=== PATIENT | male | born 1985 | race Caucasian/White ===

== ENCOUNTER 2017-04-09 10:25 | Emergency (ER) | payer OTHER ==
[2017-04-09 10:33] VITALS: BP 154/89
[2017-04-09] MEDS ORDERED: KETOROLAC TROMETHAMINE INJ/PF 30 MG/1 ML SDV IM ONE (11:19)
--- NOTE | 2017-04-09 11:33 | ER Document Report ---
ED Neck/Back Problem - General Chief Complaint: Back Pain Stated Complaint: NECK AND BACK PAIN Time Seen by Provider: 04/09/17 11:05 TRAVEL OUTSIDE OF THE [place] IN LAST 30 DAYS: No - HPI Patient complains to provider of: Neck - sore, and tight. 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 Associated symptoms: None - Related Data Allergies/Adverse Reactions: No Known Allergies Allergy (Verified 04/09/17 10:32) Past Medical History - Social History Smoking Status: Never Smoker Chew tobacco use (# tins/day): No Frequency of alcohol use: Rare Drug Abuse: None Family History: Reviewed & Not Pertinent Patient has suicidal ideation: No Patient has homicidal ideation: No - Past Medical History Cardiac Medical History: Denies: Hx Coronary Artery Disease, Hx Heart Attack, Hx Hypertension Pulmonary Medical History: Denies: Hx Asthma, Hx Bronchitis, Hx COPD, Hx Pneumonia Neurological Medical History: Denies: Hx Cerebrovascular Accident, Hx Seizures Renal/ Medical History: Denies: Hx Peritoneal Dialysis Musculoskeltal Medical History: Denies Hx Arthritis - Immunizations Hx Diphtheria, Pertussis, Tetanus Vaccination: No Review of Systems - Review of Systems Constitutional: No symptoms reported EENT: No symptoms reported Cardiovascular: No symptoms reported Respiratory: No symptoms reported Gastrointestinal: No symptoms reported Musculoskeletal: See HPI Neurological/Psychological: No symptoms reported -: Yes All other systems reviewed and negative Physical Exam - Vital signs Vitals: Temp Pulse Resp BP Pulse Ox 98.0 F 90 16 154/89 H 97 04/09/17 10:32 04/09/17 10:32 04/09/17 10:32 04/09/17 10:32 04/09/17 10:32 - General General appearance: Appears well, Alert In distress: None - Cardiovascular Pulses: Normal: Radial Normal capillary refill: Yes - Back Back: Normal, Nontender, Other - paraspinal muscle tenderness along left trapezius with associated muscle tightness. No: Deformity/step-off, Vertebra tenderness, Wounds - Extremities General upper extremity: Normal inspection, Nontender, Normal color, Normal ROM , Normal strength, Normal temperature General lower extremity: Normal inspection, Nontender, Normal color, Normal ROM , Normal strength, Normal temperature, Normal weight bearing - Neurological Neuro grossly intact: Yes Cognition: Normal Orientation: AAOx4 [place] Coma Scale Eye Opening: Spontaneous [place] Coma Scale Verbal: Oriented Melanie Coma Scale Motor: Obeys Commands [place] Coma Scale Total: 15 Motor strength normal: LUE, RUE, LLE, RLE 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 Presentation is consistent with a muscle strain. Will discharge patient home with steroid and muscle relaxer and can continue taking his pain management medications as prescribed. Patient to follow-up with primary care. Patient does not have any focal neurologic deficits, nuchal rigidity, vital signs are within normal limits no papilledema. Patient is otherwise no acute distress and hemodynamically stable. Low index for suspicion of acute subarachnoid hemorrhage, meningitis or mass. Low suspicion for acute life- threatening etiology with intact neuro exam therefore no additional imaging or laboratory testing is indicated. - Vital Signs Vital signs: Temp Pulse Resp BP Pulse Ox 98.0 F 90 16 154/89 H 97 04/09/17 10:32 04/09/17 10:32 04/09/17 10:32 04/09/17 10:32 04/09/17 10:32 Discharge - Discharge Clinical Impression: Neck pain Condition: Good Disposition: HOME, SELF-CARE Instructions: Ice Packs ([facility]), Muscle Strain ([facility]), Pain Medication Injection ( [facility]), Warm Packs ([facility]) Prescriptions: Cyclobenzaprine HCl [Flexeril 10 mg Tablet] 10 mg PO TIDP PRN #15 tab PRN Reason: Methylprednisolone [Medrol Dosepack (4 mg/Tab) 21 Tab/Dosepak] 4 mg PO ASDIR PRN #21 tab.ds.pk PRN Reason: Forms: Elevated Blood Pressure
== END 2017-04-09 12:03 | disposition home or self-care (01) ==
LOC: ER 10:25
DX: M54.2 Cervicalgia (principal); M54.9 Dorsalgia, unspecified
CPT/HCPCS: 99283; J1885

== ENCOUNTER 2018-04-18 15:45 | Emergency (ER) | payer OTHER ==
[2018-04-18 15:53] VITALS: BP 138/85
[2018-04-18] MEDS ORDERED: DIPH/PERTUSS(ACELL)/TETANUS VAC/PF 0.5 ML SYR (>=10YO) IM ONE (16:33)
--- NOTE | 2018-04-18 16:39 | ER Document Report ---
ED Hand/Wrist Injury - General Chief Complaint: Hand Injury Stated Complaint: LEFT HAND INJURY Time Seen by Provider: 04/18/18 16:29 Notes: pt is a 32 yo healthy male, presenting to ED c/o injury and pain to left hand, index and middle fingers. 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 pt unsure of tetnus status. pt is a patient of pain management, declines pain med at this time TRAVEL OUTSIDE OF THE [place] IN LAST 30 DAYS: No - HPI Onset: Just prior to arrival - Related Data Allergies/Adverse Reactions: No Known Allergies Allergy (Verified 04/18/18 15:46) Past Medical History - General Information source: Patient - Social History Smoking Status: Never Smoker Chew tobacco use (# tins/day): No Frequency of alcohol use: Occasional Drug Abuse: None Family History: Reviewed & Not Pertinent Patient has suicidal ideation: No Patient has homicidal ideation: No - Past Medical History Cardiac Medical History: Denies: Hx Coronary Artery Disease, Hx Heart Attack, Hx Hypertension Pulmonary Medical History: Denies: Hx Asthma, Hx Bronchitis, Hx COPD, Hx Pneumonia Neurological Medical History: Denies: Hx Cerebrovascular Accident, Hx Seizures Renal/ Medical History: Denies: Hx Peritoneal Dialysis Musculoskeletal Medical History: Denies Hx Arthritis Past Surgical History: Reports: Hx Orthopedic Surgery - hip and face. - Immunizations Hx Diphtheria, Pertussis, Tetanus Vaccination: No Review of Systems - Review of Systems Constitutional: No symptoms reported EENT: No symptoms reported Cardiovascular: No symptoms reported Respiratory: No symptoms reported Gastrointestinal: No symptoms reported Genitourinary: No symptoms reported Male Genitourinary: No symptoms reported Musculoskeletal: See HPI Skin: No symptoms reported Hematologic/Lymphatic: No symptoms reported Neurological/Psychological: No symptoms reported Physical Exam - Vital signs Vitals: Temp Pulse Resp BP Pulse Ox 98.2 F 74 12 138/85 H 93 04/18/18 15:51 04/18/18 15:51 04/18/18 15:51 04/18/18 15:51 04/18/18 15:51 Interpretation: Normal - General General appearance: Appears well, Alert - HEENT Head: Normocephalic, Atraumatic Eyes: Normal Pupils: PERRL - Respiratory Respiratory status: No respiratory distress Chest status: Nontender Breath sounds: Normal Chest palpation: Normal - Cardiovascular Rhythm: Regular Heart sounds: Normal auscultation Murmur: No - Abdominal Inspection: Normal Distension: No distension Bowel sounds: Normal Tenderness: Nontender Organomegaly: No organomegaly - Back Back: Normal, Nontender - Extremities General lower extremity: Normal inspection, Nontender, Normal color, Normal ROM , Normal temperature, Normal weight bearing. No: Zen's sign Hand: Tender - + 1cm superficial lacertion to dorsal left index finger between PIP and DIP. no active bleeding. no tendon involvement. small subungal hematoma left index finger. + tenderness left middle finger over PIP. no deformity. distal SMC intact - Neurological Neuro grossly intact: Yes Cognition: Normal Orientation: AAOx4 [place] Coma Scale Eye Opening: Spontaneous [place] Coma Scale Verbal: Oriented [place] Coma Scale Motor: Obeys Commands [place] Coma Scale Total: 15 Speech: Normal Motor strength normal: LUE, RUE, LLE, RLE Sensory: Normal - Psychological Associated symptoms: Normal affect, Normal mood - Skin Skin Temperature: Warm Skin Moisture: Dry Skin Color: Normal Course - Re-evaluation Re-evalutation: 04/18/18 17:28 X-rays negative for fracture. This result was reviewed with patient. Wounds were cleaned with Shur-Clens, edges approximated and derma serrano applied. Home care, primary care follow-up and ED return precautions were discussed with patient. Patient is agreeable with plan and stable for discharge - Vital Signs Vital signs: Temp Pulse Resp BP Pulse Ox 98.2 F 74 12 138/85 H 93 04/18/18 15:51 04/18/18 15:51 04/18/18 15:51 04/18/18 15:51 04/18/18 15:51 Procedures - Laceration/Wound Repair left index finger Wound length (cm): 1 Wound's Depth, Shape: Superficial Wound explored: Clean Wound Repaired With: Dermabond Post-procedure NV exam normal: Yes Complications: Yes Discharge - Discharge Clinical Impression: Crush injury Finger laceration Qualifiers: Encounter type: initial encounter Finger: index finger Damage to nail status: without damage Foreign body presence: without foreign body Laterality: left Qualified Code(s): S61.211A - Laceration without foreign body of left index finger without damage to nail, initial encounter Condition: Stable Disposition: HOME, SELF-CARE Instructions: Tetanus Immunization Given ([facility]), Soap Cleansing ([facility]), Skin Adhesive Closure ([facility]), Temporary Splint ([facility]), Ice & Elevation ([facility]) Additional Instructions: Your x-rays were negative for fracture Wear splint for comfort and protection Ice and elevate injured hand is much as possible Ibuprofen for pain and swelling Take your pain medication as prescribed by pain management Follow-up with your primary care pain persists more than 10 days
--- NOTE | 2018-04-18 17:01 | RADIOLOGY REPORT (SQ) ---
EXAM DESCRIPTION: HAND LEFT 3 VIEWS COMPLETED DATE/TIME: 04/18/2018 4:49 pm REASON FOR STUDY: hand pain, crush injury COMPARISON: None. EXAM PARAMETERS: NUMBER OF VIEWS: Three views. TECHNIQUE: AP, lateral and oblique radiographic images acquired of the left hand. LIMITATIONS: None. FINDINGS: MINERALIZATION: Normal. BONES: No acute fracture or dislocation. No worrisome bone lesions. JOINTS: No effusions. SOFT TISSUES: No soft tissue swelling. No foreign body. OTHER: No other significant finding. IMPRESSION: NEGATIVE STUDY OF THE LEFT HAND. NO RADIOGRAPHIC EVIDENCE OF ACUTE INJURY. TECHNICAL DOCUMENTATION: JOB ID: [id number] [employer]- All Rights Reserved Reading location - IP/workstation name: [email or web address]
== END 2018-04-18 17:39 | disposition home or self-care (01) ==
LOC: ER 15:45
DX: S67.22XA Crushing injury of left hand, initial encounter (principal); S67.190A Crushing injury of right index finger, initial encounter; S67.192A Crushing injury of right middle finger, initial encounter; S61.311A Laceration without foreign body of left index finger with damage to nail, initial encounter; W23.0XXA Caught, crushed, jammed, or pinched between moving objects, initial encounter; Y93.89 Activity, other specified
CPT/HCPCS: 90715; 99283